=== PATIENT | female | born 1955 | race Caucasian/White ===

== ENCOUNTER 2016-08-29 15:13 | Emergency (ER) | payer OTHER | END 2016-08-29 21:39 | disposition home or self-care (01) | LOC: ER 15:13 | DX: E10.649 Type 1 diabetes mellitus with hypoglycemia without coma (principal); Z79.4 Long term (current) use of insulin; Z79.899 Other long term (current) drug therapy; I10 Essential (primary) hypertension; E03.9 Hypothyroidism, unspecified; K21.9 Gastro-esophageal reflux disease without esophagitis | CPT/HCPCS: 36415; 80053; 81003; 82947; 85025; 93005 ==